=== PATIENT | female | born 1970 | race Caucasian/White ===

== ENCOUNTER 2023-04-11 16:57 | Emergency (ER) | payer OTHER ==
[2023-04-11 17:04] VITALS: BP 108/62; PULSE 82; RESP 19; TEMP 98.5; BMI 23.0
== END 2023-04-11 18:08 | disposition home or self-care (01) ==
LOC: JERFT 16:57
DX: R50.9 Fever, unspecified (principal); R51.9 Headache, unspecified; R05.9 Cough, unspecified; R11.2 Nausea with vomiting, unspecified; J02.9 Acute pharyngitis, unspecified; M79.10 Myalgia, unspecified site; B34.9 Viral infection, unspecified; Z20.822 Contact with and (suspected) exposure to COVID-19
CPT/HCPCS: 0241U-QW; 99283-25

== ENCOUNTER 2023-09-02 09:59 | Emergency (ER) | payer OTHER ==
[2023-09-02 10:09] VITALS: BP 109/69; PULSE 85; RESP 18; TEMP 98.3; BMI 23.0
[2023-09-02] MEDS ORDERED: ACETAMINOPHEN 500 MG TABLET (FP) ONE (10:25)
[2023-09-02] MEDS: ACETAMINOPHEN 500 MG TABLET (FP) PO ONE (10:29)
== END 2023-09-02 12:15 | disposition home or self-care (01) ==
LOC: JERFT 09:59
DX: R05.9 Cough, unspecified (principal); R50.9 Fever, unspecified; R09.81 Nasal congestion; B34.9 Viral infection, unspecified; Z20.822 Contact with and (suspected) exposure to COVID-19
CPT/HCPCS: 0241U-QW; 71046-TC-FY; 99284-25

== ENCOUNTER 2025-01-21 08:28 | Day surgery (SDC) | payer OTHER ==
[2025-01-19 16:23] VITALS: BMI 27.4
[2025-01-21 08:53] VITALS: RESP 18
[2025-01-21 12:34] VITALS: TEMP 98
[2025-01-21 12:46] VITALS: BP 114/69; PULSE 59
== END 2025-01-21 13:15 | disposition home or self-care (01) ==
LOC: FASU-ENDO 08:28
PROVIDERS: ATTEND Internal Medicine Gastroenterology
PROC: 0DJD8ZZ Inspection of Lower Intestinal Tract, Via Natural or Artificial Opening Endoscopic (ICD-10-PCS; principal; 2025-01-21 11:58)
DX: Z12.11 Encounter for screening for malignant neoplasm of colon (principal); K57.30 Diverticulosis of large intestine without perforation or abscess without bleeding